=== PATIENT | female | born 1970 | race Asian ===

== ENCOUNTER 2024-04-26 05:42 | Emergency (ER) | payer MEDICAID, OTHER ==
[~2024-04-26] VITALS: Ht 167.6 cm; Wt 86.4 kg
[2024-04-26 05:51] VITALS: TEMP 98.6
[2024-04-26 06:47] LABS: BASOPHILS % (AUTO) 0.4 % (0.0-2.0); EOSINOPHILS % (AUTO) 0 % (1.0-6.0); HEMATOCRIT 43.2 % (36-46); HEMOGLOBIN 14.2 g/dL (12.0-16.0); LYMPHOCYTES # (AUTO) 1.1 K/uL (1.0-4.8); LYMPHOCYTES % (AUTO) 11.7 % (22.0-44.0); MEAN CORPUSCULAR HEMOGLOBIN 28.2 pg (26.0-34.0); MEAN CORPUSCULAR HGB CONC 32.8 G/dL (31.0-37.0); MEAN CORPUSCULAR VOLUME 86 fL (80-100); MONOCYTES # (AUTO) 0.3 K/uL (0.1-1.0); MONOCYTES % (AUTO) 2.9 % (2.0-9.0); NEUTROPHILS # (AUTO) 7.8 K/uL (1.8-7.7); PLATELET COUNT (AUTO) 262 K/uL (150-450); RED BLOOD CELL COUNT(AUTO) 5.04 MIL/uL (4.00-5.20); RED CELL DISTRIBUTION WIDTH 15.3 % (11.5-14.5); WHITE BLOOD COUNT (AUTO) 9.1 K/uL (4.5-11.0)
[2024-04-26 06:58] LABS: ANION GAP 15 mmol/L (8-16); CALCIUM, TOTAL 8.9 mg/dL (8.8-10.5); CARBON DIOXIDE 20 mmol/L (22-29); CHLORIDE 103 mmol/L (98-107); CREATININE 0.58 mg/dL (0.60-1.30); GLOMERULAR FILTR. RATE CALC > 60 mL/min (>60); GLUCOSE,RANDOM 124 mg/dL (70-110); SODIUM SERUM 138 mmol/L (136-145); UREA NITROGEN, BLOOD 9 mg/dL (7-18)
[2024-04-26 07:07] LABS: TROPONIN I-HIGH SENSITIVITY 4 ng/L (<51)
[2024-04-26 07:12] LABS: B-TYPE NATRIURETIC PEPTIDE 36 pg/mL (0-100)
[2024-04-26] MEDS: PredniSONE 20 MG TABLET PO ONE (07:15)
[2024-04-26] MEDS: IPRATROPIUM BROMIDE 0.5 MG/2.5 ML NEB SOLUTION NEB ONE (07:32)
[2024-04-26] MEDS: ALBUTEROL SULFATE 2.5 MG/0.5 ML NEB SOLUTION NEB ONE (07:33)
[2024-04-26 07:36] VITALS: PULSE 93; RESP 14; O2SAT 98
[2024-04-26 07:42] VITALS: PULSE 75; RESP 16; O2SAT 97
[2024-04-26] MEDS: AZITHROMYCIN 500 MG TABLET PO ONE (07:45)
[2024-04-26] MEDS ORDERED: IOHEXOL 350 MG/ML 100 ML VIAL ONE (08:34)
[2024-04-26] MEDS ORDERED: SODIUM CHLORIDE 0.9% 100 ML ONE (08:34)
[2024-04-26 09:58] LABS: TROPONIN I-HIGH SENSITIVITY 5 ng/L (<51)
[2024-04-26] MEDS ORDERED: PRED-554 PO (10:14)
[2024-04-26 10:15] VITALS: BP 149/86; PULSE 69; RESP 16; O2SAT 98
[2024-04-26] MEDS ORDERED: AZIT-167 PO (10:15)
== END 2024-04-26 10:37 | disposition home or self-care (01) ==
LOC: EMS 05:42
DX: J44.1 Chronic obstructive pulmonary disease with (acute) exacerbation (principal); R06.02 Shortness of breath; R05.9 Cough, unspecified
CPT/HCPCS: 99285; 71275; 71045; 80048; 83880; 84484; 85025; 85379; 94640; 93005; 36415; J0456; Q9967; J7512; J7050; J7613